=== PATIENT | female | born 1995 | race Two or more races ===

== ENCOUNTER 2024-02-11 23:18 | Emergency (ER) | payer MEDICAID, OTHER ==
[~2024-02-11] VITALS: Ht 162.6 cm; Wt 73.6 kg
[2024-02-12 00:32] VITALS: BP 127/73; PULSE 71; RESP 18; TEMP 99; O2SAT 99
[2024-02-12] MEDS ORDERED: RIME75TA PO (00:57)
[2024-02-12] MEDS ORDERED: LAMO200T34 PO (00:57)
[2024-02-12] MEDS ORDERED: OXCA600T3 PO (00:57)
[2024-02-12] MEDS ORDERED: FOLITAB22 PO (00:57)
[2024-02-12] MEDS: OXcarbazepine 300 MG TAB PO ONE (01:00)
== END 2024-02-12 01:09 | disposition home or self-care (01) ==
LOC: ER 23:18
DX: R56.9 Unspecified convulsions (principal); Z76.0 Encounter for issue of repeat prescription; Z88.8 Allergy status to other drugs, medicaments and biological substances